=== PATIENT | male | born 1985 | race Two or more races ===

== ENCOUNTER 2018-12-20 00:23 | Emergency (ER) | payer OTHER, BC ==
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
[2018-12-20 03:05] VITALS: BP 137/74
== END 2018-12-20 03:06 | disposition home or self-care (01) ==
LOC: ER 00:23
DX: S30.22XA Contusion of scrotum and testes, initial encounter (principal); G89.29 Other chronic pain; M54.5 Low back pain; Y04.2XXA Assault by strike against or bumped into by another person, initial encounter; Y92.238 Other place in hospital as the place of occurrence of the external cause; Y99.0 Civilian activity done for income or pay; F17.210 Nicotine dependence, cigarettes, uncomplicated
CPT/HCPCS: 99283